=== PATIENT | female | born 1955 | race Caucasian/White ===

== ENCOUNTER → 2020-03-07 11:01 | Outpatient (CLI) | payer BC, SELFPAY ==
--- NOTE | 2020-03-07 11:14 | MRI_ITS ---
STUDY: MRI RIGHT HIP REASON FOR EXAM: Female, 64 years old. rt hip segmental and somatic dysfunction, right hip sprain, pt felt a and quot;pop and quot;, painful groin and lateral hip TECHNIQUE: Standardized fat and water weighted pulse sequences were obtained in all 3 orthogonal planes. COMPARISON: None. FINDINGS: Moderate joint space narrowing at the right hip. Mild joint space narrowing at the left hip. Minimal pubic symphysis arthrosis. Normal sacroiliac joints. Moderate L5-S1 arthrosis. No acute fracture. No acute dislocation. No acute bone destruction. Mild right hamstring tendinosis. Normal right rectus femoris tendon. Normal right iliopsoas tendon. Minimal right gluteus medius/minimus peritendinitis. Normal adductor tendons. Small volume right hip joint effusion. Right hip labral degeneration without discrete labral tear. Capsular ligaments intact. No bursitis. Visualized intra-abdominal/pelvic contents within normal limits. Normal neurovascular bundle. No solid, cystic or lipomatous soft tissue lesions. MRI/Lower Ext Joint Only (Routine) IMPRESSION: Bilateral hip osteoarthritis, right greater than left Minimal right gluteus medius/minimus peritendinitis Mild right hamstring tendinosis Small volume right hip joint effusion with mild labral degeneration Lower lumbar spine osteoarthritis Electronically Signed: Bartolo Kinney DO at 12:47 EDT Tel , Service support ,
== END ==
PROVIDERS: PCP Family Medicine
DX: M99.09 Segmental and somatic dysfunction of abdomen and other regions (principal); M16.0 Bilateral primary osteoarthritis of hip; S73.101A Unspecified sprain of right hip, initial encounter
CPT/HCPCS: 73721